=== PATIENT | male | born 1960 | race Caucasian/White ===

== ENCOUNTER 2020-06-14 14:37 | Outpatient (CLI) | payer OTHER, SELFPAY | END 2020-06-14 14:38 | disposition home or self-care (01) | LOC: ANHCOVIDVC 14:37 | PROVIDERS: PCP Family Medicine | DX: Z23 Encounter for immunization (principal) | CPT/HCPCS: 0001A; 91300 ==

== ENCOUNTER 2020-07-05 14:13 | Outpatient (CLI) | payer OTHER, SELFPAY | END 2020-07-05 14:14 | disposition home or self-care (01) | LOC: ANHCOVIDVC 14:13 | PROVIDERS: PCP Family Medicine | DX: Z23 Encounter for immunization (principal) | CPT/HCPCS: 0002A; 91300 ==